=== PATIENT | male | born 1990 | race Caucasian/White ===

== ENCOUNTER 2024-05-30 13:09 | Emergency (ER) | payer OTHER, SELFPAY ==
[2024-05-30 13:14] VITALS: BP 142/95; PULSE 65; RESP 16; TEMP 36.2; O2SAT 95; BMI 30.1
--- NOTE | 2024-05-30 13:30 | ED_ITS ---
HPI - General Adult General Chief complaint: Extremity Injury, Lower Stated complaint: L calf injury, sent from urgent care Time Seen by Provider: 05/30/24 13:29 Source: patient, RN notes reviewed and old records reviewed Mode of arrival: ambulatory Limitations: no limitations History of Present Illness ED Provider: Pascual HPI narrative: 34-year-old male presents for evaluation of left lower leg pain. Patient reports that he was performing physical training for the [employer]. He was running when he felt a stabbing pain in his left calf area He has some pain with walking to his left calf He has full range of motion to his left ankle, left knee. His pain is mild, 3/10 No other complaints or concerns Related Data Allergies Allergy/AdvReac Type Severity Reaction Status Date / Time No Known Allergies Allergy Verified 05/30/24 13:15 Review of Systems Musculoskeletal: Musculoskeletal: Reports arthralgias, Denies joint swelling and Denies limited range of motion PMFSH Social History Social History Advance Directives: No Advance Directives Information Provided: Yes Do you have a plan to hurt others: No Plan Physical Exam ED Vital Signs: Vital Signs - 24 hr 05/30/24 13:14 05/30/24 13:42 Temperature 97.1 F 97.1 F Pulse Rate 65 65 Respiratory Rate 16 16 Blood Pressure 142/95 H 142/95 H Pulse Oximetry 95 95 Oxygen Delivery Method Room Air Room Air BMI result Body Mass Index 30.1 Const General: healthy appearing, comfortable, no acute distress, alert and awake Nutritional Appearance: well nourished Orientation/consciousness: patient oriented x3 HENMT Head: Yes normocephalic and Yes atraumatic Eyes Eyelids: Yes eyelids normal Conjunctivae: conjunctivae normal Sclerae: sclerae normal Corneas: corneas normal Pupils: Equal, round and reactive pupils present EOM: EOMs intact bilaterally Neck Neck: Yes full ROM Resp Effort & Inspection: normal respiratory effort, able to speak in complete sentences and not labored Skin General skin exam: elasticity normal Neuro General: patient oriented x3 Cranial nerves: Yes Equal, round and reactive pupils present and Yes Bilaterally intact EOM present Cognition (Neuro): normal cognition Extrem Other: Patient has no obvious deformity to the left calf, ankle or foot. He has no tenderness to palpation of the left calf. His left Achilles tendon is palpable without any bogginess. He has full range of motion with plantar flexion and dorsiflexion of the left foot/ankle. Modified Love test negative Medical Decision Making Medical Decision Making MDM Narrative: 34-year-old male presents for evaluation of left calf/Achilles pain. His physical exam is reassuring. He actually has no pain on palpation, only with walking. Clinically he does not have a ruptured calf muscle/gastrocnemius or ruptured Achilles tendon. He does likely a calf strain. I advised the patient to avoid excessive strenuous activity for the next week. I advised him to slowly advance his physical exertion as long as he remains pain-free Differential Diagnosis Differential Diagnoses: The differential diagnosis associated with the presentation includes Calf strain Calf muscle tear Achilles tendonitis Achilles tendon Tests considered The following testing was considered but not selected: Consider an ultrasound of the left lower extremity, however the patient's pain started after an injury, less likely DVT. He is also young otherwise healthy. No risk factors for DVT. Discharge Plan Discharge Clinical Impression: Achilles tendinitis Patient Disposition: Home, Self-Care Instructions: Achilles Tendinitis (ED) Additional Instructions: Your physical exam is reassuring in that your Achilles tendon or calf muscle are not ruptured. It was still very likely that you have a strain I recommend limiting your physical activity for the next 2 weeks You may begin jogging if you do not have pain while walking after the 2 weeks has past You may progress to running and sprinting if you have no pain with jogging You may use ibuprofen/Tylenol for pain. Ice the sore area Follow up with Orthopedics Return for new or worsening symptoms Referrals: Adilson Alberts MD [Physician] - (Achilles tendonitis) Interventions: ED Discharge Assessment Last Done: 05/30/24 13:42 Discharge Date/Time: 05/30/24 13:43 Print Language: Lao
[2024-05-30 13:42] VITALS: BP 142/95; PULSE 65; RESP 16; TEMP 36.2; O2SAT 95
--- OUTSIDE RECORDS SUMMARY | 2024-05-30 16:37 | XMS_ITS | Patient Health Record ---
Author Organization [facility] Address [address] [place] [address] Care Team Providers Care Wanigan Clerk Name Role Phone KURT VALDES Primary Care Provider [phone] KATTY ALLEN Unavailable [phone] ALLERGIES No Known Allergies RESULTS Component Value Reference Range Notes HEPATITIS B SURFACE ANTIBODY Reviewed date:12/27/2023 03:11:14 PM Interpretation: Performing Lab: Notes/Report: Note Original Ordering Provider: KURT VALDES MD Dagne Dover, a member of [address] [address] [employer] - Mackenzie Roberson MD HEPATITIS B SURFACE ANTIBODY POSITIVE NEGATIVE Note Original Ordering Provider: KURT VALDES MD Dagne Dover, a member of [address] [address] [employer] - Mackenzie Roberson MD REASON FOR REFERRAL No Information IMMUNIZATIONS Vaccine Route Administration Date Status Comme nts Tdap IM Intramuscular 10/20/2022 Administered SOCIAL HISTORY Tobacco Use: Social History Observation Description Date Details (start date - stop date) Never Smoker NA - NA Sex Assigned At : Social History Observation Description Sex Assigned At Unknown Tobacco Use/Smoking Question Answer Notes Are you a nonsmoker Section Notes: patient is currently single. He has a qxf-ehcs-kqb daughter. He lives in [place]. He enjoys playing basketball. He does not do any drugs. Social drinking patient is currently single. He has a fuj-eusz-ffu daughter. He lives in [place]. He enjoys playing basketball. He does not do any drugs. Social drinking patient is currently single. He has a vyu-siam-gsy daughter. He lives in [place]. He enjoys playing basketball. He does not do any drugs. Social drinking patient is currently single. He has a zil-jhta-uhq daughter. He lives in [place]. He enjoys playing basketball. He does not do any drugs. Social drinking patient is currently single. He has a hag-spnq-oyj daughter. He lives in [place]. He enjoys playing basketball. He does not do any drugs. Social drinking patient is currently single. He has a llp-xcsh-vpe daughter. He lives in [place]. He enjoys playing basketball. He does not do any drugs. Social drinking patient is currently single. He has a owc-bzht-esi daughter. He lives in [place]. He enjoys playing basketball. He does not do any drugs. Social drinking patient is currently single. He has a zdx-ufpf-ckk daughter. He lives in [place]. He enjoys playing basketball. He does not do any drugs. Social drinking patient is currently single. He has a hsx-kthu-djz daughter. He lives in [place]. He enjoys playing basketball. He does not do any drugs. Social drinking patient is currently single. He has a dfz-ynyz-giq daughter. He lives in [place]. He enjoys playing basketball. He does not do any drugs. Social drinking patient is currently single. He has a mfv-dliw-siz daughter. He lives in [place]. He enjoys playing basketball. He does not do any drugs. Social drinking PROBLEMS Problem Type ICD Code Onset Dates Problem Status W/U Status Risk SNOMED Code Notes Problem Hyperlipidemia, unspecified (E78.5) Active confirmed Hyperlipidemia (89134714) Problem Lumbago with sciatica, right side (M54.41) Active confirmed [id number] Problem Lumbago with sciatica, left side (M54.42) Active confirmed 336276451 Problem Encounter for general adult medical examination without abnormal findings (Z00.00) Active confirmed 427673277 Problem Encounter for screening for diabetes mellitus (Z13.1) Active confirmed 337888931 Problem Encounter for screening for other suspected endocrine disorder (Z13.29) Active confirmed 465656341 Problem Vitamin D deficiency (E55.9) Active confirmed Vitamin D deficiency (41848893) Problem Back pain due to inflammatory process (M54.89) Active confirmed Backache (765559118) Problem Elevated blood pressure reading in office with white coat syndrome, without diagnosis of hypertension (R03.0) Active confirmed Elevated blood pressure reading without diagnosis of hypertension (130849130) Problem Low back pain, unspecified back pain laterality, unspecified chronicity, unspecified whether sciatica present (M54.50) Active confirmed 189106986 Encounters Encounter Location Date Provider Diagnosis [facility] [address] [place] [address] 10/25/2023 KATTY ALLEN [facility] [address] [place] [address] 12/28/[address] [facility] [address] [place] [address] 12/13/2023 KURT VALDES Hepatitis B immune Z78.9 ASSESSMENTS Encounter Date Diagnosis Assessment Notes Treatment Notes Treatment Clinical Notes Section Notes 12/13/2023 Hepatitis B immune (ICD-10 - Z78.9) PLAN OF TREATMENT Pending Test Test Name Order Date Hepatitis B Surface Antibody 12/13/2023
--- OUTSIDE RECORDS SUMMARY | 2024-05-30 16:37 | XMS_ITS ---
Author Organization [facility] Address [address] [place] [address] Care Team Providers Care Loom Checker Name Role Phone KURT VALDES Primary Care Provider [phone] Encounters Encounter Location Date Provider Diagnosis [facility] [address] [facility] [address] [place] [address] 12/13/2023 KURT VALDES Hepatitis B immune Z78.9 ASSESSMENTS Encounter Date Diagnosis Assessment Notes Treatment Notes Treatment Clinical Notes Section Notes 12/13/2023 Hepatitis B immune (ICD-10 - Z78.9) PLAN OF TREATMENT Pending Test Test Name Order Date Hepatitis B Surface Antibody 12/13/2023 Progress Notes * Tevin LEWIS JRDOB:1989 (33 yo M)Acc No.[id number]:12/13/2023 Patient:??Tevin LEWIS JR :1990?Age:33 Y?Sex:Ma le Address:[address] [place] [address] Subjective: * Chief Complaints: * ? * Medical History:?? * Surgical History:?? * Hospitalization/Major Diagno stic Procedure:?? * Medications:?? Objective: Assessment: * Assessment: 1.??Hepatitis B immune - Z78 .9?? Plan: * Treatment: * Procedure Codes:?? * true * Date:??
--- OUTSIDE RECORDS SUMMARY | 2024-05-30 16:37 | XMS_ITS ---
Author Organization [facility] Address [address] [place] [address] Care Team Providers Care Topology Teacher Name Role Phone KURT VALDES Primary Care Provider [phone] KATTY PABON [phone] Encounters Encounter Location Date Provider Diagnosis [facility] [address] [place] [address] 12/28/2023 KATTY ALLEN PLAN OF TREATMENT No Information Progress Notes * Tevin FERRELL JRDOB:1989 (34 yo M)Acc No.[id number]:12/28/2023 CPE Patient:??Tevin FERRELL JR Provider:??KATTY ALLEN PA-C :1990?Age:33 Y?Sex:Virgil le Date:12/28/2023 Address:[address] [place], [place] [id number] Pcp:KURT VALDES Subjective: * Chief Complaints: * ? * Medical History:?? Objective: Assessment: Plan: * Treatment: * Images: Billing Information: * Visit Code:?? * Procedure Codes:?? Care Plan Details* * Sign off status: Pending * Provider:??KATTY ALLEN PA-C Date:??10/2023
--- OUTSIDE RECORDS SUMMARY | 2024-05-30 16:37 | XMS_ITS ---
Author Organization [facility] Address [address] [place] [address] Care Team Providers Care Plastic Surgery Technician Name Role Phone KURT VALDES Primary Care Provider [phone] KATTY PABON [phone] Encounters Encounter Location Date Provider Diagnosis [facility] [address] [place] [address] 10/25/2023 KATTY ALLEN PLAN OF TREATMENT No Information Progress Notes * Tevin FERRELL JRDOB:1989 (34 yo M)Acc No.[id number]:10/25/2023 CPE Patient:??Tevin FERRELL JR Provider:??KATTY ALLEN PA-C :1990?Age:33 Y?Sex:Virgil le Date:10/25/2023 Address:[address] [place], [place] [phone] Pcp:KURT VALDES Subjective: * Chief Complaints: * ? * Medical History:?? Objective: Assessment: Plan: * Treatment: * Images: Billing Information: * Visit Code:?? * Procedure Codes:?? Care Plan Details* * Sign off status: Pending * Provider:??KATTY ALLEN PA-C Date:??07/2023
== END 2024-05-30 13:43 | disposition home or self-care (01) ==
PROVIDERS: Emergency Provider Student in an Organized Health Care Education/Training Program; PCP Internal Medicine
DX: M65.262 Calcific tendinitis, left lower leg (principal); M79.605 Pain in left leg
CPT/HCPCS: 99282

== ENCOUNTER 2024-09-10 17:29 | Emergency (ER) | payer OTHER, SELFPAY ==
[2024-09-10 17:36] VITALS: BP 133/86; PULSE 55; RESP 16; TEMP 36.2; O2SAT 98; BMI 29.2
--- NOTE | 2024-09-10 17:41 | ED.GENADULT ---
HPI - General Adult General Chief complaint: Animal Bite Stated complaint: right pointer finger/trigger finger-WC Time Seen by Provider: 09/10/24 18:00 Source: patient Mode of arrival: ambulatory Limitations: no limitations History of Present Illness ED Provider: Doreen Becerra PA-C HPI narrative: Patient is a 34 year old assigned male at with no reported medical history presenting to the emergency department today with a right index finger dog bite. 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 Patient denies any dizziness, lightheadedness, abdominal pain, nausea, vomiting, fever, chills, blurry vision, double vision, loss of vision, chest pain, difficulty breathing, shortness of breath, back pain, night sweats, pain with urination, increased urinary frequency, increased urinary urgency, blood in his urine or stool, syncope or a near syncopal episode, bowel incontinence, bladder incontinence, or any other complaints at this time. Relieving factors: none Exacerbating factors: none Associated symptoms: denies other symptoms Treatments prior to arrival: none Related Data Previous Rx's ?Medication ?Instructions ?Recorded amoxicillin 875 mg-potassium 1 tab PO BID 5 days #10 tabs 09/10/24 clavulanate 125 mg tablet Allergies Allergy/AdvReac Type Severity Reaction Status Date / Time ibuprofen AdvReac Nausea and Verified 09/10/24 17:39 Vomiting Review of Systems Constitutional: Constitutional: Reports no additional constitutional complaints, Denies chills, Denies fever(s) and Denies night sweats Eyes: Eyes: Reports no additional eye complaints, Denies blurry vision, Denies change in vision, Denies diplopia, Denies eye discharge, Denies loss of vision and Denies eye pain ENT: Denies dizziness Cardiovascular: Cardiovascular: Reports no additional cardiovascular complaints, Denies chest pain, Denies lightheadedness, Denies Loss of Consciousness and Denies dyspnea Respiratory: Respiratory: Reports no additional respiratory complaints and Denies dyspnea Gastrointestinal: Gastrointestinal: Reports no additional gastrointestinal complaints, Denies abdominal pain, Denies melena, Denies hematochezia, Denies change in bowel habits and Denies change in stool character Genitourinary: Genitourinary: Reports no additional male genitourinary complaints, Denies hematuria, Denies oliguria, Denies difficulty urinating, Denies dysuria, Denies urinary frequency, Denies urinary hesitancy, Denies urinary incontinence and Denies urinary urgency Musculoskeletal: Musculoskeletal: Reports no additional musculoskeletal complaints, Denies numbness and Denies tingling Comments: right index finger abrasion Neurologic: Denies dizziness, Denies loss of vision, Denies numbness and Denies tingling Psychiatric: Psychiatric: Reports no additional psychiatric complaints Endocrine: Endocrine: Reports no additional endocrine complaints Hematologic/Lymphatic: Hematologic/Lymphatic: Reports no additional hematologic/lymphatic complaints Allergic/Immunologic: Allergic/Immunologic: Reports no additional allergic/immunologic complaints [facility] Past Medical History Attestation statement: The following information was validated with the patient. Source: old records reviewed and nursing notes reviewed Social History Social History Smoked in Last 30 Days: No Advance Directives: No Advance Directives Information Provided: Yes Do you have a plan to hurt others: No Plan Physical Exam ED Vital Signs: Vital Signs - 24 hr 09/10/24 17:36 09/10/24 19:08 Temperature 97.2 F 97.2 F Pulse Rate 55 55 Respiratory Rate 16 16 Blood Pressure 133/86 133/86 Pulse Oximetry 98 98 Oxygen Delivery Method Room Air Room Air BMI result Body Mass Index 29.2 Const General: cooperative, no acute distress, alert and awake Nutritional Appearance: well nourished Orientation/consciousness: patient oriented x3 HENMT Head: Yes normal to inspection and Yes atraumatic Ears: hearing grossly normal bilaterally and external ears normal General nose exam: Normal external nose present, no nasal discharge noted and no epistaxis Face and sinus: Yes normal facial exam, No abrasion and No laceration Mouth: Normal oral and palatal mucosa present, no drooling and no muffled voice Eyes General: appearance normal, both eyes and all related structures Periorbital: periorbital findings normal Eyelids: Yes eyelids normal Conjunctivae: conjunctivae normal Pupils: Equal, round and reactive pupils present EOM: EOMs intact bilaterally Neck Neck: Yes normal visual inspection, Yes full ROM and Yes no lymphadenopathy Resp Effort & Inspection: normal respiratory effort and able to speak in complete sentences Neuro General: patient oriented x3, moves all extremities and CN's II-XI intact bilaterally Cranial nerves: Yes Equal, round and reactive pupils present Cognition (Neuro): normal cognition Extrem Other: small abrasion present to the dorsal and palmar aspects of the right 2nd digit - no open areas, no gaping, no bleeding General: Yes full ROM and Yes capillary refill normal Psych Appearance: grossly normal Mental Status: mental status grossly normal Affect: normal affect Attitude: cooperative Thought process: Normal thought process present Thought content: Normal thought content present Insight: Good insight present (Psych) Course Course Course Narrative: RME: 34 yold male presents to the ED for right index bite by a shannan. 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 Patient is uptodate with tetanus. Patient agreeable to rabies vaccine. Medications Administered Discontinued Medications Generic Name Dose Route Start Last Admin Trade Name Freq PRN Reason Stop Dose Admin Amoxicillin/Clavulanate Potassium 875 mg 09/10/24 18:24 09/10/24 18:38 Amoxicillin/Potassium Clav 875 Mg Tablet PO 09/10/24 18:25 875 mg ONCE ONE Administration Rabies Immune Globulin 1,950.44 unit 09/10/24 18:23 09/10/24 18:39 Rabies Immune Globulin/Pf 900 Unit/3 Ml Vial 20 unit/kg (1950.44 unit) 09/10/24 18:24 1,950.44 unit IM Administration ONCE ONE Rabies Vaccine 1 ml 09/10/24 18:23 09/10/24 18:38 Rabies Vaccine (Pcec)/Pf 1 Ml Vial IM 09/10/24 18:24 1 ml .ONCE ONE Administration Medical Decision Making Medical Decision Making MDM Narrative: Patient is a 34 year old assigned male at with no reported medical history presenting to the emergency department today with a right index finger dog bite. Patient's physical exam was as noted in the physical exam portion of this note. I explained my physical exam findings to the patient. I answered all questions asked by the patient. Patient was started on his rabies series given this was an unknown dog with an unknown vaccination status. I stressed the importance of the patient taking his medication as directed (either prescribed or as the over the counter packaging recommends). I stressed the importance of the patient following up with his primary care provider and given this was a work place injury - work connection. I stressed the importance of the patient returning to the emergency department immediately if his symptoms were to worsen or if he were to develop any dizziness, shortness of breath, difficulty breathing, chest pain, blurry vision, loss of vision, nausea, vomiting, abdominal pain, fever, chills, back pain, or any other complaints. Patient verbalized agreement and understanding with this treatment plan and discharge. Differential Diagnosis Differential Diagnoses: The differential diagnosis associated with the presentation includes Dog bite Rabies exposure Finger injury Finger abrasion Admission/Observation Consideration of admission/observation: Escalation of care including admission/observation considered Patient would have been admitted to the hospital had his clinical presentation warranted hospital admission. Tests considered The following testing was considered but not selected: I considered obtaining an x-ray of the right hand however, the patient's current clinical presentation and mechanism of injury does not warrant this. I discussed this with the patient who verbalized unerstanding and agreement. Prescription Management I considered prescription management with: Antibiotic (Patient prescribed prophylactic antibiotic for dog bite. ) Discharge Plan Discharge Clinical Impression: Rabies exposure, Bite by animal Patient Disposition: Home, Self-Care Instructions: Animal Bite (ED) Additional Instructions: You should get a call from the Infusion Center to schedule an appointment to receive the remainder of your required Rabies Vaccines. You will need a total of 3 more injections. If for some reason you do not receive a call from the infusion center - please call them at [phone]. Follow up with your primary care provider after completion of the vaccine to have a titer drawn to ensure the vaccines effectiveness. Follow up with your primary care provider. Return to the emergency department immediately if you develop any numbness, tingling, dizziness, shortness of breath, difficulty breathing, chest pain, blurry vision, loss of vision, nausea, vomiting, abdominal pain, fever, chills, back pain, or any other complaints. Please see the information below about our Patient Portal. If you are not yet enrolled in the [facility] Patient Portal, you will receive an enrollment email invitation following your visit to any [facility] care setting. You may also self-enroll in the Patient Portal by visiting our website: [email or web address] The following information is required to access the Patient Portal: - Your [facility] Medical Record Number - Your personal home email address (must match what is in your electronic medical record, Registration staff can assist with this) - Name - Date of Capabilities of the Patient Portal: - Message some providers - View upcoming appointments - Access your health summary, medical history, and visit history - View current conditions and allergies - View procedure and lab results - View your medications, including guidelines, side effects, and precautions - Complete pre-appointment questionnaires requested by your provider - Ready summary reports of your office visits and procedures To access the Patient Portal Mobile [employer], follow these directions: - Search Jing[employer] in the Luk[employer] Store or Google Play Store - Download the [employer] - Search for [facility] - Enter your login/password Prescriptions: New amoxicillin-pot clavulanate 875-125 mg tablet 1 tab PO BID 5 Days Qty: 10 0RF Referrals: [facility] Family Medicine [Provider Group, Family Practice] Referral Note: Call to establish and follow up with a primary care provider. If you already have a primary care provider, please follow up with them. Work [facility] [Provider Group] Referral Note: Given this was a work place injury, you should follow up with work connection. Stand Alone Forms: Work/School Release Interventions: ED Discharge Assessment Last Done: 09/10/24 19:08 Discharge Date/Time: 09/10/24 19:08 Print Language: Dominican
--- NOTE | 2024-09-10 18:02 | PC.NURSE ---
bite report completed faxed to [place] [facility] [phone] confirmation received
--- NOTE | 2024-09-10 18:11 | PC.NURSE ---
animal bite to right index finger irrigated and soaked in NS and Iodine- no active bleeding- small puncture marked noted on dorsal and palmar surface of distal index finger.
[2024-09-10] MEDS: Rabies Vaccine (PCEC)/PF 1 ML VIAL IM (18:38)
[2024-09-10] MEDS: Amoxicillin/Potassium Clav 875 MG TABLET PO (18:38)
[2024-09-10] MEDS: Rabies Immune Globulin/PF 900 UNIT/3 ML VIAL 1950.44 UNIT IM (18:39)
[2024-09-10 19:08] VITALS: BP 133/86; PULSE 55; RESP 16; TEMP 36.2; O2SAT 98
== END 2024-09-10 19:08 | disposition home or self-care (01) ==
PROVIDERS: Emergency Provider Emergency Medicine Emergency Medical Services
DX: S61.250A Open bite of right index finger without damage to nail, initial encounter (principal); W54.0XXA Bitten by dog, initial encounter; M79.644 Pain in right finger(s); Y93.9 Activity, unspecified; Y92.410 Unspecified street and highway as the place of occurrence of the external cause; Y99.0 Civilian activity done for income or pay; Z23 Encounter for immunization; Z20.3 Contact with and (suspected) exposure to rabies
CPT/HCPCS: 90375; 90471; 90675; 96372; 99284

== ENCOUNTER 2024-09-24 10:00 | Outpatient (RCR) | payer OTHER, SELFPAY ==
[2024-09-13 09:37] VITALS: BP 142/89; PULSE 73; RESP 16; TEMP 36.6; O2SAT 98
[2024-09-13] MEDS: Rabies Vaccine (PCEC)/PF 1 ML VIAL IM (09:41)
[2024-09-17 09:58] VITALS: BP 106/70; PULSE 64; RESP 20; TEMP 36.4; O2SAT 99; BMI 28.5
[2024-09-17] MEDS: Rabies Vaccine (PCEC)/PF 1 ML VIAL IM (10:06)
[2024-09-24 10:00] VITALS: BP 124/82; PULSE 60; RESP 20; TEMP 36.4; O2SAT 97
[2024-09-24] MEDS: Rabies Vaccine (PCEC)/PF 1 ML VIAL IM (10:03)
== END 2024-09-25 07:45 | disposition home or self-care (01) ==
LOC: HO.INF 10:00
PROVIDERS: Visit Provider Physician Assistant Medical
DX: Z20.3 Contact with and (suspected) exposure to rabies (principal)
CPT/HCPCS: 90471; 90675